=== PATIENT | female | born 1995 ===

== ENCOUNTER 2019-09-03 06:24 | Day surgery (SDC) | payer OTHER ==
[2019-09-03] MEDS ORDERED: PERCOCET 5-3251 EACH PO (09:32)
[2019-09-03] MEDS ORDERED: IBU600 MG PO (09:32)
== END 2019-09-03 11:30 | disposition home or self-care (01) ==
LOC: CIR.AMB 06:24
DX: R10.2 Pelvic and perineal pain (principal)

== ENCOUNTER 2019-11-15 08:23 | Emergency (ER) | payer OTHER ==
[~2019-11-15] VITALS: Ht 175.3 cm; Wt 63.5 kg
[~2019-11-15 08:23] MED LIST: IBU600 MG PO; PERCOCET 5-3251 EACH PO
[2019-11-15] MEDS ORDERED: ZOLOFT100 MG PO (08:48)
== END 2019-11-15 15:57 | disposition home or self-care (01) ==
LOC: ER 08:23
DX: K52.89 Other specified noninfective gastroenteritis and colitis (principal)